=== PATIENT | female | born 1960 | race Hispanic/Latino ===

== ENCOUNTER → 2019-10-05 | Outpatient (CLI) | payer MEDICARE ==
[~2019-10-05] MED LIST: IOPAMIDOL 370 MG/ML 200 ML INFUS..BTL INJ ONE; SODIUM CHLORIDE 0.9% 500ML 500 ML ONE; SODIUM CHLORIDE 0.9% 50ML 50 ML ONE
[2019-10-05 08:21] LABS: CREATININE, SERUM 1.23 mg/dL (0.57-1.11)
--- NOTE | 2019-10-05 09:26 | Diagnostic Imaging Report ---
CT of the abdomen and pelvis, with contrast. History: Diarrhea. Comparison: None available. Technique: Multidetector CT scanning of the abdomen and pelvis was performed from the level of the lung bases to the inferior pubic rami after intravenous administration of contrast. Coronal and sagittal multiplanar reformations were obtained. RADIATION DOSE: Total DLP: 335.67 mGy*cm Dose modulation, iterative reconstruction, and/or weight based adjustment of the mA/kV was utilized to reduce the radiation dose to as low as reasonably achievable. FINDINGS: The visualized lungs are clear. The imaged portion of the heart demonstrates no significant abnormalities. The liver is normal in attenuation without evidence for focal abnormality. The gallbladder is surgically absent. There is no intrahepatic biliary ductal dilatation. There is mild prominence of the common bile duct measuring up to 7-8 mm likely reflecting post cholecystectomy status. The stomach, spleen, pancreas, and bilateral adrenal glands are unremarkable. The kidneys are normal in size and location and enhance symmetrically. There is no evidence for hydronephrosis. No ureteral stone or dilatation is appreciated. The urinary bladder demonstrates no significant abnormalities. The uterus and adnexa are grossly unremarkable. The abdominal aorta is normal course and caliber with mild atherosclerotic calcifications. The IVC is unremarkable. Please note evaluation the bowel is limited without the use of enteric contrast material. Mildly dilated scattered loops of small bowel identified within the abdomen measuring up to 3.0 cm in caliber with fecalization of bowel contents. There is no evidence for high-grade obstruction. Air and stool noted within the colon. The appendix is visualized and appears unremarkable. There is no ascites or intraperitoneal free air. No abnormally enlarged lymph nodes are identified within the abdomen or pelvis. The osseous structures demonstrate degenerative changes without evidence of evidence for acute fracture or destructive process. The extraperitoneal soft tissues are unremarkable. IMPRESSION: Scattered mildly dilated loops of small bowel are identified with within the abdomen without evidence for high-grade obstruction. Findings are nonspecific but can be seen in the setting of an enteritis. Status post cholecystectomy. Signed by: Dr. Juaquin Matthews MD on 10/05/2019 9:23 AM
== END ==
LOC: CT 07:07
PROVIDERS: ATTEND Internal Medicine Gastroenterology
DX: R19.7 Diarrhea, unspecified (principal)
CPT/HCPCS: 36415; 74177; 82565; 84520; 96360; J7040; Q9967